=== PATIENT | male | born 1950 | race Native Hawaiian/Other Pacific Islander ===

== ENCOUNTER 2020-08-06 17:56 | Outpatient (CLI) | payer OTHER ==
[2020-08-06 18:33] LABS: PLATELET COUNT 156 K/uL (142-355)
[2020-08-06 18:52] LABS: POTASSIUM 4.2 mmol/L (3.6-5.2)
== END 2020-08-06 21:19 | disposition home or self-care (01) ==
LOC: LAB 17:56
PROVIDERS: ATTEND Nurse Practitioner Family
DX: Z00.00 Encounter for general adult medical examination without abnormal findings (principal); R29.898 Other symptoms and signs involving the musculoskeletal system; G47.00 Insomnia, unspecified; R53.83 Other fatigue; R53.81 Other malaise; E55.9 Vitamin D deficiency, unspecified; R56.9 Unspecified convulsions; I10 Essential (primary) hypertension; Z12.5 Encounter for screening for malignant neoplasm of prostate; Z79.899 Other long term (current) drug therapy
CPT/HCPCS: 80053; 80061; 80164; 82306; 82607; 83036; 84439; 84443; 85027; 86140